=== PATIENT | male | born 1950 | race African-American/Black ===

== ENCOUNTER 2019-11-04 23:20 | Emergency (ER) | payer MEDICAID ==
[~2019-11-04] VITALS: Ht 188 cm; Wt 105.0 kg
[~2019-11-04 23:20] MED LIST: Docusate Sodium PO; METHADONE; PROT40 PO
[2019-11-05] MEDS ORDERED: SODIUM CHLORIDE 0.9% 1,000 ML IV ONE (00:59)
[2019-11-05 01:32] LABS: BASOPHILS % 0.3 % (0.0-2.0); EOSINOPHILS % 2.8 % (0.0-5.0); HEMATOCRIT. 41.9 % (42.0-52.0); HEMOGLOBIN. 13.9 g/dL (14.0-18.0); LYMPHOCYTES % 26.5 % (20.0-50.0); MEAN CORPUSCULAR HEMOGLOBIN 30.2 pg (28.0-32.0); MEAN CORPUSCULAR VOLUME 91.4 fL (80.0-94.0); MEAN PLATELET VOLUME 12.2 fl (7.4-10.4); MONOCYTES % 8.9 % (2.0-8.0); NEUTROPHILS % 61.5 % (40.0-76.0); PLATELET 98 x1000/uL (130-400); RED BLOOD CELL COUNT 4.59 mill/uL (4.7-6.1); RED CELL DISTRIBUTION WIDTH 13.5 % (11.6-14.6)
[2019-11-05 01:34] LABS: CHLORIDE 98 mEq/L (98-107)
[2019-11-05 01:42] LABS: BETA HYDROXYBUTYRATE 0.1 mMol/L (0.0-0.3)
[2019-11-05 02:08] LABS: INR 1.2; PROTHROMBIN TIME 12.3 sec (9.6-11.0)
[2019-11-05] MEDS ORDERED: INSULIN REGULAR (HUMULIN R) UD 100 UNITS/ML SYR IV ONE (02:15)
[2019-11-05] MEDS ORDERED: INSULIN REGULAR (HUMULIN R) 300UNITS/3ML IV SCH (02:45)
[2019-11-05 03:31] LABS: CLARITY URINE CLEAR (CLEAR); COLOR URINE YELLOW (YELLOW); KETONES URINE NEGATIVE (NEGATIVE); LEUKOCYTE ESTERASE URINE NEGATIVE (NEGATIVE); NITRITE URINE NEGATIVE (NEGATIVE); OCCULT BLOOD URINE NEGATIVE (NEGATIVE); PROTEIN URINE NEGATIVE (NEGATIVE); SPECIFIC GRAVITY URINE 1.039 (1.005-1.030)
[2019-11-05 05:03] VITALS: BP 135/78
== END 2019-11-05 05:04 | disposition home or self-care (01) ==
LOC: ER 23:20
DX: E11.65 Type 2 diabetes mellitus with hyperglycemia (principal); R07.9 Chest pain, unspecified; R42 Dizziness and giddiness; Z79.899 Other long term (current) drug therapy
CPT/HCPCS: 36415; 71045; 80053; 81003; 82010; 82962; 83690; 84484; 85025; 85610; 93005; 96361; 96374; 99284; J1815; J7030; Z7610

== ENCOUNTER 2021-01-30 02:14 | Inpatient (IN) | payer MEDICARE, MEDICAID ==
[~2021-01-30] VITALS: Ht 188 cm; Wt 108.0 kg
[2021-01-30] MEDS ORDERED: MORPHINE SULFATE 4 MG/ML CPJ (NOT FOR IM USE) IV ONE (02:45)
[2021-01-30] MEDS ORDERED: NITROGLYCERIN 0.4MG TABLET SL SL PRN (02:45)
[2021-01-30] MEDS ORDERED: ASPIRIN 81MG TABLET PO ONE (02:45)
[2021-01-30 02:47] LABS: BASOPHILS % 0.6 % (0.0-2.0); EOSINOPHILS % 3.5 % (0.0-5.0); HEMATOCRIT. 43.6 % (42.0-52.0); HEMOGLOBIN. 14.5 g/dL (14.0-18.0); LYMPHOCYTES % 28.7 % (20.0-50.0); MEAN CORPUSCULAR HEMOGLOBIN 30.2 pg (28.0-32.0); MEAN CORPUSCULAR VOLUME 90.6 fL (80.0-94.0); MEAN PLATELET VOLUME 10.6 fl (7.4-10.4); MONOCYTES % 8.3 % (2.0-8.0); NEUTROPHILS % 58.9 % (40.0-76.0); PLATELET 125 x1000/uL (130-400); RED BLOOD CELL COUNT 4.82 mill/uL (4.7-6.1); RED CELL DISTRIBUTION WIDTH 13.5 % (11.6-14.6)
[2021-01-30 03:02] LABS: CHLORIDE 103 mEq/L (98-107)
[2021-01-30 03:06] LABS: ETHANOL BLOOD < 10 mg/dL
[2021-01-30] MEDS ORDERED: SODIUM CHLORIDE 0.9% 1,000 ML IV NR (04:15)
[2021-01-30 05:42] LABS: *AMPHETAMINES SCREEN URINE NEGATIVE (NEGATIVE); *BARBITURATES SCREEN URINE NEGATIVE (NEGATIVE); *BENZODIAZEPINES SCREEN URINE NEGATIVE (NEGATIVE); *COCAINE SCREEN URINE PRESUMTIVE POSITIVE (NEGATIVE); METHADONE URINE SCREEN PRESUMTIVE POSITIVE (NEGATIVE); OPIATES URINE SCREEN PRESUMTIVE POSITIVE (NEGATIVE)
[2021-01-30 05:43] LABS: CANNABINOID URINE SCREEN NEGATIVE (NEGATIVE); PHENCYCLIDINE URINE SCREEN NEGATIVE (NEGATIVE)
[2021-01-30 09:00] VITALS: BP 127/80
[2021-01-30 09:30] VITALS: BP 114/68
[2021-01-30] MEDS ORDERED: ONDANSETRON HCL 4MG/2ML INJ IV PRN (12:00)
[2021-01-30] MEDS ORDERED: ACETAMINOPHEN 325MG TABLET PO PRN (12:00)
[2021-01-30 12:18] VITALS: BP 127/80
[2021-01-30] MEDS ORDERED: TRAMADOL 50MG TABLET PO PRN (14:15)
[2021-01-30 16:00] VITALS: BP 111/51
[2021-01-30 20:16] VITALS: BP 130/70
[2021-01-31] MEDS ORDERED: IODIXANOL 320MG/ML 200ML BOTTLE ONE (07:31)
[2021-01-31] MEDS ORDERED: LIDOCAINE HCL 1% 20ML VIAL (Pyxis) INJ ONE (07:31)
[2021-01-31] MEDS ORDERED: HEPARIN SODIUM 1,000 UNIT/1ML VIAL IV ONE (08:21)
[2021-01-31] MEDS ORDERED: NICARDIPINE 100MCG/ML 10ML VIAL (CATH LAB) IV ONE (08:21)
[2021-01-31] MEDS ORDERED: NITROGLYCERIN 50MCG/ML 10ML VIAL (CATH LAB) IV ONE (08:21)
[2021-01-31 08:22] VITALS: BP 112/79
[2021-01-31] MEDS ORDERED: MIDAZOLAM HCL 2 MG/2 ML VIAL ONE (08:44)
[2021-01-31] MEDS ORDERED: FENTANYL CITRATE/PF 50MCG/ML 2ML VIAL ONE (08:44)
[2021-01-31] MEDS ORDERED: VERAPAMIL HCL 2.5 MG/1 ML 2ML VIAL IV ONE (08:48)
[2021-01-31] MEDS: ASPIRIN 81MG TABLET PO SCH ×2 (09:00→16:58)
[2021-01-31] MEDS: METOPROLOL TARTRATE 25MG TABLET PO SCH ×3 (10:00→21:00)
[2021-01-31] MEDS ORDERED: ATROPINE SULFATE 1MG/10ML SYR IV PRN (10:00)
[2021-01-31 13:15] VITALS: BP 116/59
[2021-01-31 16:12] VITALS: BP 134/76
[2021-01-31 16:19] VITALS: BP_SYST 106; BP_SYST 116; BP_DIAS 59; BP_DIAS 75
[2021-01-31] MEDS: HYDROCODONE/ACETAMINOPHEN 5/325MG TABLET PO PRN (16:57)
[2021-01-31 20:00] VITALS: BP 123/68
[2021-02-01] MEDS: HYDROCODONE/ACETAMINOPHEN 5/325MG TABLET PO PRN (02:55)
[2021-02-01 04:00] VITALS: BP 118/68
[2021-02-01 06:43] LABS: BASOPHILS % 0.3 % (0.0-2.0); HEMATOCRIT. 38.4 % (42.0-52.0); HEMOGLOBIN. 12.7 g/dL (14.0-18.0); LYMPHOCYTES % 28.9 % (20.0-50.0); MEAN CORPUSCULAR VOLUME 90.2 fL (80.0-94.0); MONOCYTES % 11.9 % (2.0-8.0); NEUTROPHILS % 54.9 % (40.0-76.0); PLATELET 88 x1000/uL (130-400); RED BLOOD CELL COUNT 4.25 mill/uL (4.7-6.1); RED CELL DISTRIBUTION WIDTH 13.7 % (11.6-14.6)
[2021-02-01 06:54] LABS: CHLORIDE 104 mEq/L (98-107)
[2021-02-01 08:00] VITALS: BP 140/81
[2021-02-01] MEDS ORDERED: METHADONE HCL 10MG TABLET PO SCH (09:00)
[2021-02-01] MEDS: METOPROLOL TARTRATE 25MG TABLET PO SCH (09:00)
[2021-02-01] MEDS: ASPIRIN 81MG TABLET PO SCH (09:12)
[2021-02-01 12:00] VITALS: BP 106/75
[2021-02-01] MEDS ORDERED: ALPRAZOLAM 0.25 MG TABLET PO SCH (14:00)
[2021-02-01] MEDS ORDERED: OMEPRAZOLE 20MG CAPSULE EXTENDED RELEASE PO SCH (14:00)
== END 2021-02-01 16:20 | disposition home or self-care (01) | DRG 205 ==
LOC: ER 02:14 → 6WST 05:09 → ENRESERV 07:29
PROVIDERS: ADMIT Internal Medicine; ATTEND Internal Medicine
PROC: 4A023N7 Measurement of Cardiac Sampling and Pressure, Left Heart, Percutaneous Approach (ICD-10-PCS; principal; 2021-01-31)
PROC: B211YZZ Fluoroscopy of Multiple Coronary Arteries using Other Contrast (ICD-10-PCS; 2021-01-31)
DX: M94.0 Chondrocostal junction syndrome [Tietze] (principal); I50.33 Acute on chronic diastolic (congestive) heart failure; I47.2 Ventricular tachycardia; I24.9 Acute ischemic heart disease, unspecified; I11.0 Hypertensive heart disease with heart failure; I25.111 Atherosclerotic heart disease of native coronary artery with angina pectoris with documented spasm; E78.5 Hyperlipidemia, unspecified; E66.9 Obesity, unspecified; E11.9 Type 2 diabetes mellitus without complications; F14.90 Cocaine use, unspecified, uncomplicated; Z20.822 Contact with and (suspected) exposure to COVID-19; I49.3 Ventricular premature depolarization; K74.60 Unspecified cirrhosis of liver; D69.6 Thrombocytopenia, unspecified; B19.20 Unspecified viral hepatitis C without hepatic coma; E78.00 Pure hypercholesterolemia, unspecified; Z82.49 Family history of ischemic heart disease and other diseases of the circulatory system; Z79.899 Other long term (current) drug therapy; Z68.30 Body mass index [BMI] 30.0-30.9, adult
CPT/HCPCS: 36415; 71045; 80048; 80053; 80061; 80305; 80320; 82962; 83880; 84443; 84484; 85025; 87426; 93005; 93306; 93458; 99285; C1769; C1887; C1893; J1644; J2250; J2270; J3010; J3490; Q9967; G0480

== ENCOUNTER 2022-04-19 12:04 | Emergency (ER) | payer MEDICARE, MEDICAID ==
[~2022-04-19] VITALS: Ht 188 cm; Wt 103.0 kg
[~2022-04-19 12:04] MED LIST changes: +IBUP-2029 MT; +METH-375 MT
[2022-04-19 12:07] VITALS: BP 126/75
[2022-04-19 14:29] LABS: BASOPHILS % 0.4 % (0.0-2.0); EOSINOPHILS % 2.7 % (0.0-5.0); HEMATOCRIT. 42.5 % (42.0-52.0); HEMOGLOBIN. 13.8 g/dL (14.0-18.0); LYMPHOCYTES % 29.8 % (20.0-50.0); MEAN CORPUSCULAR HEMOGLOBIN 29.4 pg (28.0-32.0); MEAN CORPUSCULAR VOLUME 90.4 fL (80.0-94.0); MEAN PLATELET VOLUME 11.6 fl (7.4-10.4); MONOCYTES % 10.6 % (2.0-8.0); NEUTROPHILS % 56.5 % (40.0-76.0); PLATELET 112 x1000/uL (130-400); RED CELL DISTRIBUTION WIDTH 14.3 % (11.6-14.6)
[2022-04-19] MEDS ORDERED: ASPIRIN 81MG TABLET PO ONE (14:30)
[2022-04-19] MEDS ORDERED: NITROGLYCERIN 0.4MG TABLET SL SL PRN (14:30)
[2022-04-19 14:39] LABS: CHLORIDE 105 mEq/L (98-107)
== END 2022-04-19 17:12 | disposition home or self-care (01) ==
LOC: ER 12:04
DX: R07.89 Other chest pain (principal); R06.02 Shortness of breath; R42 Dizziness and giddiness; E11.9 Type 2 diabetes mellitus without complications; E78.00 Pure hypercholesterolemia, unspecified
CPT/HCPCS: 36415; 71045; 80053; 83880; 84484; 85025; 93005; 99285

== ENCOUNTER 2024-08-26 07:07 | Emergency (ER) | payer MEDICARE, MEDICAID ==
[~2024-08-26] VITALS: Ht 188 cm; Wt 100.0 kg
[2024-08-26 07:13] VITALS: O2SAT 97
[2024-08-26] MEDS: KETOROLAC 30MG/ML VIAL IV STA (07:41)
[2024-08-26 07:49] LABS: BASOPHILS % 0.5 % (0.0-2.0); HEMOGLOBIN. 13.5 g/dL (14.0-18.0); LYMPHOCYTES % 25.1 % (20.0-50.0); MEAN CORPUSCULAR HEMOGLOBIN 30.1 pg (28.0-32.0); MEAN CORPUSCULAR VOLUME 91.2 fL (80.0-94.0); MEAN PLATELET VOLUME 10.8 fl (7.4-10.4); NEUTROPHILS % 63.4 % (40.0-76.0); PLATELET 122 x1000/uL (130-400); RED BLOOD CELL COUNT 4.49 mill/uL (4.7-6.1); RED CELL DISTRIBUTION WIDTH 14.8 % (11.6-14.6); WHITE BLOOD COUNT 3.9 x1000/uL (4.5-11.0)
[2024-08-26 08:01] LABS: CARBON DIOXIDE 29 mEq/L (21-32); CHLORIDE 105 mEq/L (98-107); POTASSIUM 3.6 mEq/L (3.5-5.1); SODIUM 141 mEq/L (136-145)
[2024-08-26 08:02] LABS: CALCIUM 9.5 mg/dL (8.7-10.4)
[2024-08-26 08:06] LABS: GLUCOSE 121 mg/dL (70-105)
[2024-08-26 08:07] LABS: UREA NITROGEN BLOOD 13 mg/dL (9-23)
[2024-08-26 08:08] LABS: ALANINE AMINOTRANSFERASE 12 IU/L (10-49); ASPARTATE AMINOTRANSFERASE 20 IU/L (<34)
[2024-08-26 08:09] LABS: BILIRUBIN DIRECT 0.3 mg/dL (<=3.0); BILIRUBIN TOTAL 0.9 mg/dL (0.1-1.0); PROTEIN TOTAL 7.5 g/dL (6.0-8.3)
[2024-08-26 08:10] LABS: TROPONIN I HIGH SENSITIVITY < 4 ng/L (3.0-53)
[2024-08-26 08:29] LABS: LACTIC ACID 2.5 mmol/L (0.4-2.0)
[2024-08-26] MEDS: IOHEXOL-300 100 ML BOTTLE ONE (09:00)
[2024-08-26 10:06] LABS: CLARITY URINE CLEAR (CLEAR); COLOR URINE YELLOW (YELLOW); GLUCOSE URINE NEGATIVE (NEGATIVE); KETONES URINE NEGATIVE (NEGATIVE); LEUKOCYTE ESTERASE URINE TRACE (NEGATIVE); NITRITE URINE NEGATIVE (NEGATIVE); OCCULT BLOOD URINE NEGATIVE (NEGATIVE); PROTEIN URINE NEGATIVE (NEGATIVE); SPECIFIC GRAVITY URINE 1.034 (1.005-1.030)
[2024-08-26 10:56] VITALS: BP 146/62; PULSE 62; RESP 15; TEMP 36.83628; O2SAT 99
[2024-08-26 10:59] LABS: BACTERIA URINE NONE SEEN; RBC URINE NONE SEEN /hpf (0-2); WBC URINE 0-2 /hpf (0-2)
[2024-08-26 11:00] LABS: SQUAMOUS EPITHELIAL CELL URINE RARE /lpf (RARE/1+)
== END 2024-08-26 11:06 | disposition home or self-care (01) ==
LOC: ER 07:07
DX: R10.31 Right lower quadrant pain (principal)
CPT/HCPCS: 99285; 74177; 96374; 80076; 80048; 81003; 83605; 83690; 85025; 84484; 36415; 93005; Q9967; J1885